=== PATIENT | male | born 1950 | race Caucasian/White ===

== ENCOUNTER 2016-10-05 16:53 | Emergency (ER) | payer OTHER ==
[2016-10-05 17:13] VITALS: BP 131/77; PULSE 69; RESP 18; TEMP 97.5
[2016-10-05] MEDS ORDERED: PROPARACAINE 0.5% OPHTH DROPS 15 ML BTL LEFT EYE STA (17:22)
[2016-10-05] MEDS ORDERED: TOBRAMYCIN 0.3% OPHTH OINT 3.5 GM TUBE LEFT EYE STA (17:50)
--- NOTE | 2016-10-05 18:02 | ED ---
Eye Problem HPI - General Chief complaint: Eye Problems Stated complaint: Left Eye Pain Time Seen by Provider: 10/05/16 17:16 Source: patient, RN notes reviewed Mode of arrival: ambulatory Limitations: no limitations - History of Present Illness Initial comments: 65-year-old male presents to the emergency department with a chief complaint of left eyebrow redness and irritation. Patient states he's had this for about one. Patient states he went to the [place] clinic and referred here due to the fact that they did not notice what was causing the patient's symptoms. Patient states he has blurry vision at distance up closely is able to bee stings. Patient states he has noticed increased watering to the eye as well. Patient states that he denies any foreign bodies. He is aware of. Patient denies any injury to the eye. Patient denies any history of any eye problems patient states he was concerned due to the continued symptoms that he thought that she should be evaluated. Patient denies any recent fever, chills, shortness of breath, chest pain, back pain, abdominal pain, nausea vomiting, numbness or tingling, dysuria or hematuria, constipation or diarrhea, headaches, or any other current symptoms. - Related Data Home Medications Medication Instructions Recorded Confirmed Aspirin 81 mg PO DAILY 10/05/16 10/05/16 Previous Rx's Medication Instructions Recorded Tobramycin 0.3% Ophth Oint [Tobrex 1 applic LEFT EYE TID #1 tube 10/05/16 0.3% Ophth Oint] Allergies Allergy/AdvReac Type Severity Reaction Status Date / Time No Known Allergies Allergy Verified 10/05/16 17:13 Review of Systems ROS Statement: Those systems with pertinent positive or pertinent negative responses have been documented in the HPI. ROS Other: All systems not noted in ROS Statement are negative. Past Medical History Past Medical History: Diabetes Mellitus, Hyperlipidemia, Hypertension Additional Past Medical History / Comment(s): bladder issues History of Any Multi-Drug Resistant Organisms: None Reported Past Surgical History: Coronary Bypass/CABG, Hernia Repair Past Psychological History: No Psychological Hx Reported Smoking Status: Current every day smoker Past Alcohol Use History: Occasional Past Drug Use History: None Reported General Exam Limitations: no limitations General appearance: alert, in no apparent distress Eye exam: Present: PERRL, EOMI, conjunctival injection (To the left eye). Absent: scleral icterus, periorbital swelling, periorbital tenderness Pupils: Present: normal accommodation Expanded Eyelids: Normal Inspection: Bilateral Pupils: Regular, Round: Bilateral Sclera/Conjunctival: Normal Inspection: Right, Injection: Left (tamayo lamp and slit lamp examination with no corneal abrasion observed) Anterior chamber: Normal Inspection: Bilateral Posterior chamber: Deferred: Bilateral IOP (R) in mmH IOP (L) in mmH IOP measured with: Tonopen ENT exam: Present: normal exam, mucous membranes moist Neck exam: Present: normal inspection. Absent: tenderness, meningismus, lymphadenopathy Respiratory exam: Present: normal lung sounds bilaterally. Absent: respiratory distress, wheezes, rales, rhonchi, stridor Cardiovascular Exam: Present: regular rate, normal rhythm, normal heart sounds. Absent: systolic murmur, diastolic murmur, rubs, gallop, clicks Neurological exam: Present: alert, oriented X3 Psychiatric exam: Present: normal affect, normal mood Skin exam: Present: warm, dry, intact, normal color. Absent: rash Course Vital Signs 10/05/16 17:08 Temperature 97.5 F L Pulse Rate 69 Respiratory 18 Rate Blood Pressure 131/77 O2 Sat by Pulse 97 Oximetry Medical Decision Making - Medical Decision Making 65-year-old male presents emergency Department with a chief complaint of what appears to be a left eye conjunctivitis. At this time we will start patient tobramycin. We discussed close follow-up with ophthalmology. We discussed. The proparacaine completely resolved his symptoms most likely is an anterior eye due to the injection and drainage most likely conjunctivitis. We discussed close follow-up return parameters all patient's questions. We did discuss that he does have good visualization at 10 feet but at 20 does become blurry. We discussed this could be due to the irritation of the eyebrow close follow-up is recommended. Patient stated that he understood and all his questions have been answered. He will be discharged. Disposition Clinical Impression: Conjunctivitis, left eye Disposition: HOME SELF-CARE Condition: Stable Instructions: Conjunctivitis (ED) Additional Instructions: Please use medication as discussed. Please follow up with family doctor if symptoms have not improved over the next two days. Please return to the emergency room if your symptoms increase or worsen or for any other concerns. Prescriptions: Tobramycin 0.3% Ophth Oint [Tobrex 0.3% Ophth Oint] 1 applic LEFT EYE TID #1 tube Referrals: Mario Agarwal DO [Primary Care Provider] - 1-2 days Time of Disposition: 18:02
== END 2016-10-05 18:11 | disposition home or self-care (01) ==
LOC: EC 16:53
DX: H10.9 Unspecified conjunctivitis (principal); F17.200 Nicotine dependence, unspecified, uncomplicated; Z79.82 Long term (current) use of aspirin; Z98.61 Coronary angioplasty status
CPT/HCPCS: 99283

== ENCOUNTER 2016-10-13 12:53 | Emergency (ER) | payer OTHER ==
[2016-10-13 13:06] VITALS: BP 127/58; PULSE 70; RESP 20; TEMP 97.7
[2016-10-13] MEDS ORDERED: PROPARACAINE 0.5% OPHTH DROPS 15 ML BTL ONE (13:19)
[2016-10-13] MEDS ORDERED: PROPARACAINE 0.5% OPHTH DROPS 15 ML BTL LEFT EYE STA (13:20)
--- NOTE | 2016-10-13 14:11 | ED ---
Eye Problem HPI - General Chief complaint: Eye Problems Stated complaint: Left Eye Pain Time Seen by Provider: 10/13/16 13:08 Source: patient, RN notes reviewed Mode of arrival: ambulatory Limitations: no limitations - History of Present Illness Initial comments: This a 65-year-old male presents emergency Department with chief complaint of left eye pain. This has been present for approximately 10-14 days. Patient was seen in emergency department and by primary care physician 1 week ago. Patient was placed on Tobrex eye ointment and states that he has been using as directed but states that has not improved his eye much. He states he continues to have redness to his left eye in states his eye feels tender. Patient states he continues to have blurred vision and states that every is blurry out of his left eye. Patient states that he was told he had conjunctivitis. Patient did not follow up with anybody after leaving the emergency department because he stated that he has to go down to [place] and he does not want to drive down to [place]. Patient denies any trauma to his left eye. Patient is diabetic states that he does have yearly retinal exams. Patient states that he has had some tearing from the left eye and crusting only in the last 2 days. - Related Data Home Medications Medication Instructions Recorded Confirmed Aspirin 81 mg PO DAILY 10/05/16 10/05/16 Previous Rx's Medication Instructions Recorded Tobramycin 0.3% Ophth Oint [Tobrex 1 applic LEFT EYE TID #1 tube 10/05/16 0.3% Ophth Oint] Allergies Allergy/AdvReac Type Severity Reaction Status Date / Time No Known Allergies Allergy Verified 10/13/16 13:05 Review of Systems ROS Statement: Those systems with pertinent positive or pertinent negative responses have been documented in the HPI. ROS Other: All systems not noted in ROS Statement are negative. Past Medical History Past Medical History: Diabetes Mellitus, Hyperlipidemia, Hypertension Additional Past Medical History / Comment(s): bladder issues History of Any Multi-Drug Resistant Organisms: None Reported Past Surgical History: Coronary Bypass/CABG, Hernia Repair Past Psychological History: No Psychological Hx Reported Smoking Status: Current every day smoker Past Alcohol Use History: Occasional Past Drug Use History: None Reported General Exam Limitations: no limitations General appearance: alert, in no apparent distress Head exam: Present: atraumatic, normocephalic, normal inspection Eye exam: Present: PERRL, EOMI, conjunctival injection (Moderate left with minimal chemosis). Absent: normal appearance, scleral icterus, periorbital swelling, periorbital tenderness Pupils: Present: other (Was felt that there may be a small black line in the right lower area concerns for the tear) Expanded Eyelids: Normal Inspection: Bilateral Pupils: Regular, Round: Bilateral, Reactive: Bilateral Sclera/Conjunctival: Normal Inspection: Right, Injection: Left Anterior chamber: Normal Inspection: Bilateral Visual acuity (R) = 20/: 30 Visual acuity (L) = 20/: 200 IOP (R) in mmH IOP (L) in mmH IOP measured with: Tonopen ENT exam: Present: normal exam, normal oropharynx, mucous membranes moist, TM's normal bilaterally Neck exam: Present: normal inspection. Absent: tenderness, meningismus, lymphadenopathy Respiratory exam: Present: normal lung sounds bilaterally. Absent: respiratory distress, wheezes, rales, rhonchi, stridor Cardiovascular Exam: Present: regular rate, normal rhythm, normal heart sounds. Absent: systolic murmur, diastolic murmur, rubs, gallop, clicks Course Vital Signs 10/13/16 13:03 Temperature 97.7 F Pulse Rate 70 Respiratory 20 Rate Blood Pressure 127/58 O2 Sat by Pulse 95 Oximetry Medical Decision Making - Medical Decision Making 65-year-old male presented for left eye recheck. Patient is advised that we need to contact ophthalmology and he needs to see them. This is been ongoing issue with no improvement with Tobrex eye ointment. This most likely be conjunctivitis at his symptoms have not improved and he has blurred vision. Headaches plain there is a small black line possible for small detachment. As he is diabetic. We attempted to contact ophthalmology per patient states that he believes is [facility] be covered by [facility] and that he needs to just [facility] the [facility]. Patient is informed that he has to and needs to [facility] [place] [facility] as he may lose his vision. He states he does understand this. Disposition Clinical Impression: Left eye pain, Redness of left eye Disposition: HOME SELF-CARE Condition: Stable Additional Instructions: Please return to the Emergency Department if symptoms worsen or any other concerns. [facility] to [facility] with registered representative. Referrals: Mario Agarwal DO [Primary Care Provider] - 1-2 days
== END 2016-10-13 14:22 | disposition home or self-care (01) ==
LOC: EC 12:53
DX: H57.12 Ocular pain, left eye (principal); H57.8 Other specified disorders of eye and adnexa; F17.200 Nicotine dependence, unspecified, uncomplicated; Z79.82 Long term (current) use of aspirin
CPT/HCPCS: 99283